=== PATIENT | female | born 1975 | race African-American/Black ===

== ENCOUNTER → 2017-10-01 | Day surgery (SDC) | payer BC ==
[~2017-10-01] VITALS: Ht 165.1 cm; Wt 78.0 kg
[~2017-10-01] MED LIST: EQ ALLERGY50 MCG/ACT; FLEXERIL PO; HYDROCHLORO25 MG/TAB PO; HYDROCHLOROT12.5 MG PO; LISINOP/HCTZ1 TA1 PO; LISINOPRIL20 M1 PO; LORTAB 7.5 PO; MOTRIN800 MG PO; MULTI VIT PO; MULTIVITAMI9 PO; PERCOCET 5/325M1 TAB PO; POTASSIUM99 MG PO; PROMETHAZINE HC25 MG; ULTRAM50 M1 PO; ZOFRAN ODT8 MG OR; [UNRECOGNIZED DRUG - OTHER] OR; [UNRECOGNIZED DRUG - OTHER] PO
[2017-10-01 09:17] VITALS: BP 157/90
== END | disposition home or self-care (01) | DRG 572 ==
LOC: ORM 06:23
PROVIDERS: ATTEND Surgery
PROC: 0HBU0ZX Excision of Left Breast, Open Approach, Diagnostic (ICD-10-PCS; principal; 2017-10-01)
PROC: 0JBF0ZZ Excision of Left Upper Arm Subcutaneous Tissue and Fascia, Open Approach (ICD-10-PCS; 2017-10-01)
DX: D24.2 Benign neoplasm of left breast (principal); D17.22 Benign lipomatous neoplasm of skin and subcutaneous tissue of left arm; Z85.43 Personal history of malignant neoplasm of ovary; Z92.21 Personal history of antineoplastic chemotherapy